=== PATIENT | male | born 1945 | race African-American/Black ===

== ENCOUNTER 2020-03-28 10:15 | Inpatient (IN) | payer OTHER ==
[~2020-03-28] VITALS: Ht 177.8 cm; Wt 65.8 kg
[2020-03-28 10:20] VITALS: BP 172/85
[2020-03-28 12:32] LABS: ABSOLUTE NEUTROPHILS 5.3 thou/uL (1.4-8.2); BASOPHILS 0.7 % (0.0-2.0); EOSINOPHILS 1.3 % (0.0-3.0); HEMATOCRIT 39.5 % (42.0-52.0); HEMOGLOBIN 13.3 gm/dL (14.0-18.0); LYMPHOCYTES 8.9 % (24.0-44.0); MCH 31.5 pg (26.0-34.0); MCHC 33.8 g/dL (28.0-37.0); MCV 93.4 fL (80.0-100.0); MONOCYTES 8.9 % (1.0-8.0); PLATELET COUNT 206 thou/uL (150-400); POLYS 80.2 % (36.0-66.0); RBC 4.23 mil/uL (4.50-6.00); RDW 14.3 % (10.5-14.5); WBC 6.6 thou/uL (4.0-11.0)
[2020-03-28 12:41] LABS: CALCIUM 9.4 mg/dL (8.5-10.1); CREATININE 1.1 mg/dL (0.7-1.3)
[2020-03-28 12:51] LABS: ALBUMIN 3.2 g/dL (3.4-5.0); TOTAL BILIRUBIN 1.2 mg/dL (0.2-1.0); TROPONIN-I 0.16 ng/mL (<0.06)
--- NOTE | 2020-03-28 16:30 | EKG ---
[facility] [place] [address] ELECTROCARDIOGRAM REPORT Name: CESARIO WILL Room #: 170-14 ADM IN M.R.#: [id number] Admission: 03/28/20 Attend Phys: Bud Conrad MD Discharge: Date of : 45 Report #: [id number] THIS REPORT FOR: cc: OPAL - Itzel family physician/PCP OPAL - Itzel family physician/PCP Teodoro Rodriguez MD [facility] THIS REPORT FOR: //name// [facility] ED Test Date: 2020-03-28 Test Time: 11:08:13 Pat Name: CESARIO WILL Department: Room: [facility] Gender: M Regional Trainer: [facility] : 1945 Requested By: Vianney Nugent Order Number: [id number] MD: Teodoro Rodriguez Measurements Intervals Regan Rate: 74 P: 0 MS: 50 QRS: 176 QRSD: 127 T: 210 QT: 452 QTc: 502 Interpretive Statements Atrial-sensed ventricular-paced rhythm No further analysis attempted due to paced rhythm No previous ECG available for comparison Electronically Signed On 03-28-2020 16:29:55 CDT by Teodoro Rodriguez [email or web address] <ELECTRONICALLY SIGNED> By: Teodoro Rodriguez MD, FACC 03/28/20 1629 1108 [id number] Teodoro Rodriguez MD, [facility] /EPI
[2020-03-28 16:33] LABS: TSH 0.785 uIU/mL (0.358-3.740)
[2020-03-28 17:30] VITALS: BP 172/78
[2020-03-28 18:14] VITALS: BP 160/78
[2020-03-28] MEDS ORDERED: FUROSEMIDE 20 M20 MG PO (18:20)
[2020-03-28] MEDS ORDERED: CARVEDILOL25 MG PO (18:21)
[2020-03-28 19:58] VITALS: BP 156/72
[2020-03-29 00:38] VITALS: BP 141/73
[2020-03-29 06:50] VITALS: BP 133/66
[2020-03-29 07:27] LABS: ABSOLUTE NEUTROPHILS 5.2 thou/uL (1.4-8.2); BASOPHILS 0.2 % (0.0-2.0); HEMATOCRIT 41.5 % (42.0-52.0); HEMOGLOBIN 13.7 gm/dL (14.0-18.0); LYMPHOCYTES 7.9 % (24.0-44.0); MCH 30.8 pg (26.0-34.0); MCV 93.4 fL (80.0-100.0); MONOCYTES 9.2 % (1.0-8.0); PLATELET COUNT 221 thou/uL (150-400); POLYS 82.7 % (36.0-66.0); RBC 4.44 mil/uL (4.50-6.00); RDW 14.6 % (10.5-14.5); WBC 6.3 thou/uL (4.0-11.0)
[2020-03-29 07:40] LABS: ANION GAP 8 mmol/L (7-16); BUN 24 mg/dL (7-18); CALCIUM 9.5 mg/dL (8.5-10.1); CHLORIDE 100 mmol/L (98-107); CO2 28 mmol/L (21-32); CREATININE 1.2 mg/dL (0.7-1.3); GLUCOSE 236 mg/dL (74-106); POTASSIUM 3.9 mmol/L (3.5-5.1); SODIUM 136 mmol/L (136-145)
[2020-03-29 07:41] VITALS: BP 150/72
[2020-03-29 07:46] LABS: CHOLESTEROL 142 mg/dL (<200); HDL CHOLESTEROL 66 mg/dL (>40); LDL CHOLESTEROL 69 mg/dL (<100); MAGNESIUM 2.2 mg/dL (1.8-2.4); TC:HDL 2.2 Ratio (Not establshd); TRIGLYCERIDE 39 mg/dL (<150); VLDL 8 mg/dL (<40)
[2020-03-29 07:48] LABS: SERUM ASSESSMENT Clear
[2020-03-29 11:05] VITALS: BP 128/64
[2020-03-29 14:40] VITALS: BP 128/64
== END 2020-03-29 16:21 | disposition home or self-care (01) | DRG 291 ==
LOC: ER 10:15 → 3W 16:25 → EROBS 16:25 → 3W 18:32
PROVIDERS: Nurse Practitioner; Student in an Organized Health Care Education/Training Program; ADMIT Internal Medicine; ATTEND Internal Medicine
DX: I11.0 Hypertensive heart disease with heart failure (principal); J96.01 Acute respiratory failure with hypoxia; E44.0 Moderate protein-calorie malnutrition; I50.23 Acute on chronic systolic (congestive) heart failure; I42.8 Other cardiomyopathies; E11.9 Type 2 diabetes mellitus without complications; Z68.20 Body mass index [BMI] 20.0-20.9, adult; Z20.828 Contact with and (suspected) exposure to other viral communicable diseases; Z95.810 Presence of automatic (implantable) cardiac defibrillator; Z79.899 Other long term (current) drug therapy; Z88.0 Allergy status to penicillin; Z86.73 Personal history of transient ischemic attack (TIA), and cerebral infarction without residual deficits; Z82.49 Family history of ischemic heart disease and other diseases of the circulatory system; Z87.891 Personal history of nicotine dependence
CPT/HCPCS: 10879